=== PATIENT | male | born 1990 | race Caucasian/White ===

== ENCOUNTER 2017-02-05 10:43 | Emergency (ER) | payer OTHER ==
[~2017-02-05] VITALS: Ht 172.7 cm; Wt 86.2 kg
[~2017-02-05 10:43] MED LIST: DOXYCYCLINE 10100 MG PO; IBUPROFEN 800800 M1 PO; KEFLEX500 MG PO; SENOKOT-S1 TA1 PO; ZOFRAN ODT4 MG PO
[2017-02-05] MEDS ORDERED: IBUPROFEN 600600 M1 PO (12:46)
[2017-02-05] MEDS ORDERED: NORCO 5-325 TA1 EACH PO (12:46)
[2017-02-05 13:02] VITALS: BP 124/73
== END 2017-02-05 13:06 | disposition home or self-care (01) ==
LOC: ER 10:43
DX: S93.402A Sprain of unspecified ligament of left ankle, initial encounter (principal); F17.210 Nicotine dependence, cigarettes, uncomplicated; F10.99 Alcohol use, unspecified with unspecified alcohol-induced disorder; Z87.442 Personal history of urinary calculi; Z98.890 Other specified postprocedural states; Z88.6 Allergy status to analgesic agent; Z88.1 Allergy status to other antibiotic agents; X58.XXXA Exposure to other specified factors, initial encounter; Y93.84 Activity, sleeping; Y92.89 Other specified places as the place of occurrence of the external cause; Y99.8 Other external cause status